=== PATIENT | female | born 1965 | race Caucasian/White ===

== ENCOUNTER → 2019-10-16 | Outpatient (CLI) | payer MEDICARE ==
[2015-04-10 08:17] VITALS: BP 114/72
[~2019-10-16] MED LIST: ASPI81TA50 PO; CYAN500T17 PO/SL; CYCL10TA2 PO; ESCITALOPRAM OX20 MG PO; FAMO40OR4 PO; FURO20TA3 PO; HYDR-2769 PO; IBUP200T44 PO; LEVO100V5 PO; LEXAPRO20 MG PO; LIPITOR80 MG PO; LISI-334 PO; OXYC20TA34 PO; PANT40TA77 PO; POLY119P19 PO; VENTOLIN HFA18 GM INH
[2019-10-16 11:02] LABS: BASO # 0.1 x10^3/uL (0.0-0.2); BASO % 1 % (0-3); EOS # 0.2 x10^3/uL (0.0-0.7); EOS % 3 % (0-3); HEMATOCRIT 42.6 % (36.0-47.0); HEMOGLOBIN 13.9 g/dL (12.0-15.5); LYMPH # 2.5 x10^3/uL (1.0-4.8); LYMPH % 35 % (24-48); MEAN CORPUSCULAR HEMOGLOBIN 27 pg (25-35); MEAN CORPUSCULAR HGB CONC 33 g/dL (31-37); MEAN CORPUSCULAR VOLUME 84 fL (79-100); MONO # 0.5 x10^3/uL (0.0-1.1); MONO % 7 % (0-9); NEUT # 3.9 x10^3/uL (1.8-7.7); NEUT % 55 % (31-73); PLATELET COUNT 186 x10^3/uL (140-400); RED BLOOD COUNT 5.07 x10^6/uL (3.50-5.40); RED CELL DISTRIBUTION WIDTH 14.7 % (11.5-14.5); WHITE BLOOD COUNT 7.1 x10^3/uL (4.0-11.0)
[2019-10-16 11:15] LABS: ALBUMIN 3.6 g/dL (3.4-5.0); ALBUMIN/GLOBULIN RATIO 1.1 (1.0-1.7); CALCIUM 8.6 mg/dL (8.5-10.1); CREATININE 0.8 mg/dL (0.6-1.0); GFR 74.7; POTASSIUM 4.5 mmol/L (3.5-5.1); TOTAL BILIRUBIN 0.3 mg/dL (0.2-1.0)
== END | disposition home or self-care (01) ==
LOC: SURGPAT 09:27
PROVIDERS: ATTEND Neurological Surgery
DX: Z01.818 Encounter for other preprocedural examination (principal); M51.16 Intervertebral disc disorders with radiculopathy, lumbar region; Z88.8 Allergy status to other drugs, medicaments and biological substances
CPT/HCPCS: 36415; 80053; 85025; 87641

== ENCOUNTER 2019-10-26 07:06 | Day surgery (SDC) | payer MEDICARE ==
--- NOTE | 2019-10-25 15:01 | HP ---
ADMIT DATE: 10/26/2019. HISTORY OF PRESENT ILLNESS: The patient is a pleasant 54-year-old who is having difficulty with low back pain, primarily pain, which radiates into her left hip and left inguinal region. She also notices diffuse pain, which radiates into her right leg. These problems started spontaneously. She has had pain for many years, but has been worse over the last 6 months. She rates her pain as 6/10. Standing at the sink and doing laundry or making beds increases her pain. Sitting helps her. She has been taking Acworth 10. She has had chiropractic treatment as well as physical therapy, which were not helpful. She did have epidural steroid injections. In 12/2018, she underwent RFA. This had helped her significantly. PAST MEDICAL HISTORY: Arthritis, asthma, blood clots, cold sores or fever blisters, headaches or migraines, head or neck injury, hypertension, kidney stones, hypothyroidism and ulcers, chest pain, heart trouble or disease, swelling of limbs, thyroid disease, tonsillitis. PAST SURGICAL HISTORY: Cholecystectomy in 2000, hysterectomy in 2001, gastric sleeve in 2011, appendectomy 2013, renal stent 2005 and ACDF C5-C6 03/2015, cardiac stents 2016, left knee and ankle surgery in 2006. FAMILY HISTORY: Coronary artery disease, hypertension, migraine headaches, and spine problems, [place] at an early age, diabetes. SOCIAL HISTORY: She is a former smoker. Disabled. . Exercises weekly with walking. Denies alcohol consumption. Drinks coffee and soda daily. ALLERGIES: CIPRO AND SULFA. CURRENT MEDICATIONS: Pantoprazole, famotidine, escitalopram oxalate, Ventolin HFA, vitamin B12, aspirin, atorvastatin, calcium, furosemide, cyclobenzaprine, hydrochlorothiazide, polyethylene glycol, Flexeril, Acworth. REVIEW OF SYSTEMS: A 12-point review of systems was obtained and is noncontributory except for that mentioned above. PHYSICAL EXAMINATION: NEUROSURGERY EXAMINATION: GENERAL APPEARANCE: Alert, pleasant, no acute distress. HEAD: Normocephalic, atraumatic. SKIN: Warm and dry. MUSCULOSKELETAL: Lumbar paraspinal muscle bulk is normal, restricted range of motion of the lumbar spine, [id number]-[id number] tenderness of the lower lumbar spine with palpation, normal range of motion of the lower extremities bilaterally. EXTREMITIES: No clubbing, cyanosis or edema. NEUROLOGIC: Alert and oriented x3, normal recent and remote memory. Strength 5/5 in bilateral lower extremities, sensory was intact to light touch in lower extremities bilaterally, Reflexes are present and symmetric in bilateral lower extremities. Straight leg raising on the left is associated with left inguinal region pain. Straight leg raising on the right was negative. Normal gait. IMAGING: I reviewed a lumbar MRI scan. There is a large left left-sided disc herniation at L1-L2. The conus appears to be slightly higher at T12-L1. I did not see significant central canal or foraminal narrowing in mid to lower lumbar spine. ASSESSMENT/ PLAN: I do think that the problem at L1-L2 and left is responsible for her left inguinal region pain. I cannot explain the pain she is experiencing diffusely in her right leg. At this point, I think it would be worthwhile for her to undergo lumbar microsurgery at L1-L2 on the left, to see if this might help her. I did discuss the surgery and the risks. I explained that the disc at this level is slightly higher risk because of the proximity to the conus. I also explained to her that the disc had been present there for an extended period of time. It may be calcified. This can lead to limit and the ability to remove it. I did feel that I would be able to decompress the nerve root on the left. I do, however, feel that I would help her left-sided symptoms. We will make the arrangements. MONO ANAYA MD DR: MERCEDES/eduard JOB#: [id number] / [id number] ANGELIA
[~2019-10-26] VITALS: Ht 160 cm; Wt 97.5 kg
[~2019-10-26 07:06] MED LIST changes: +BACITRACIN 50,000 UNIT in IV NORMAL SALINE 1000ML BAG 1,000 ML IRR ONE; +HYDROmorphone 2 MG/ML VIAL IV PRN; +IV RINGERS,LACTATED 1000ML 1,000 ML IV SCH; +LIDOCAINE 1% PF 2 ML VIAL. ID PRN; +MORPHINE SULFATE 2 MG/ML VIAL. IV PRN; +PROCHLORPERAZINE 10 MG/2 ML VIAL. IV PRN; +fentaNYL PF VIAL 100 MCG/2 ML VIAL IV PRN
[2019-10-26] MEDS ORDERED: KETOROLAC 60 MG/2 ML VIAL. ONE (07:15)
[2019-10-26] MEDS ORDERED: GELATIN SPONGE SIZE 100. ONE (07:15)
[2019-10-26] MEDS ORDERED: BUPIVACAINE-EPI 0.5%-1:200000 MPF 30 ML VIAL. ONE (07:15)
[2019-10-26] MEDS ORDERED: THROMBIN TOPICAL 20,000 UNIT SPRAY.SYRN KIT TP ONE (07:16)
[2019-10-26] MEDS ORDERED: PROPOFOL 50 ML IV ONE ×2 (07:51→10:30)
[2019-10-26] MEDS ORDERED: LIDOCAINE 2% PF 5 ML VIAL. ONE (07:51)
[2019-10-26] MEDS ORDERED: PROPOFOL 20 ML IV ONE (07:51)
[2019-10-26] MEDS ORDERED: fentaNYL PF VIAL 100 MCG/2 ML VIAL ONE (07:51)
[2019-10-26] MEDS ORDERED: REMIFENTANIL 2 MG VIAL. IV ONE (07:52)
[2019-10-26] MEDS ORDERED: ROCURONIUM 50 MG/5 ML VIAL. ONE (07:52)
[2019-10-26] MEDS ORDERED: SUCCINYLCHOLINE 200 MG/10 ML VIAL. ONE (07:52)
[2019-10-26] MEDS ORDERED: 0.9 % SODIUM CHLORIDE 20 ML VIAL. IJ ONE (07:53)
[2019-10-26] MEDS ORDERED: DEXAMETHASONE SOD PHOS 20 MG/5 ML VIAL. ONE (09:10)
[2019-10-26] MEDS ORDERED: DESFLURANE 61 TO 120 MINUTES IH ONE (09:10)
[2019-10-26] MEDS ORDERED: ONDANSETRON PF 4 MG/2 ML VIAL. ONE (09:29)
[2019-10-26] MEDS ORDERED: PHENYLEPHRINE in 0.9% NACL PF 1 MG/10 ML SYRINGE. IV ONE (10:00)
[2019-10-26] MEDS ORDERED: PHENYLEPHRINE 10 MG/ML VIAL. ONE (10:00)
[2019-10-26] MEDS ORDERED: GLYCOPYRROLATE 1 MG/5 ML VIAL. ONE (10:33)
--- NOTE | 2019-10-26 12:14 | DISCH ---
DISCHARGE INSTRUCTIONS Condition on Discharge Condition on Discharge: Stable Activity After Discharge Activity Instructions for Disc: Avoid exertion Other activity instructions: No lifting >10 lbs, no bending, no twisting, no pushing or pulling Bathing Instructions: Shower-keep dressing dry, No Tub Bath until see Lifting Instructions after Dis: No heavy lifting, No pulling or pushing, Do not lift >10 pounds Exercise Instruction after Dis: Progress as tolerated Driving Instructions after Dis: Other, see below Weight Bearing Status after Di: No restrictions, Other, see below Diet after Discharge Diet after Discharge: Regular Diet Texture: Regular Liquid Texture: Thin Liquid Wound Incision Care Wound/Incision Care: Ice to area for comfort, May get incision wet Wound Care Equipment: Dressings Contacting the DRKathy after DC Call your doctor for: Concerns you may have Treatment/Equipment after DC Adaptive Equipment Issued: None MONO ANAYA MD Oct 26, 2019 12:14
[2019-10-26] MEDS: fentaNYL PF VIAL 100 MCG/2 ML VIAL IV PRN ×2 (12:15→12:26)
[2019-10-26] MEDS ORDERED: CYCLOBENZAPRINE 10 MG TABLET. PO ONE (12:15)
[2019-10-26] MEDS ORDERED: HYDROcodone/APAP 10/325 1 TAB TABLET PO PRN ×2 (12:15)
[2019-10-26 12:35] VITALS: BP 117/74
--- NOTE | 2019-10-26 18:21 | OP ---
DATE OF SURGERY: 10/26/2019 PREOPERATIVE DIAGNOSES: Herniated lumbar disc, L1-L2, left. POSTOPERATIVE DIAGNOSIS: Herniated lumbar disc, L1-L2, left. OPERATION PERFORMED: Lumbar microdecompression L1-L2, left with lumbar microdiscectomy L2-L3, left. The operation was done with EMG monitoring, SSEP monitoring, fluoroscopy, microscopic dissection. SURGEON: Dagoberto Anaya M.D. Mary Stark, assisted with the operation. She assisted with the decompression as well as the closure. OPERATIVE INDICATIONS: The patient is a pleasant 54-year-old who developed intractable back and primarily left inguinal radiating pain, which failed to improve with conservative measures. With imaging studies, she was found to have herniated lumbar L1-L2 disc on the left, which has been present for considerable period. I recommended lumbar microsurgery. I explained to her that should the disc be found to be calcified, it would limit how much disc which could be removed, but I could decompress the entire region and nerve root. She understood, she wished to go ahead. DESCRIPTION OF PROCEDURE: Following general endotracheal anesthesia, the patient was positioned prone on the Gurjit table, lumbar region was prepped and draped in standard fashion. ROMAN hose and AV impulse boots were applied for DVT prophylaxis. A microscope was draped. Fluoroscopy was draped and brought into field. Monitoring was established. Ancef 2 grams was given less than 1 hour prior to initiation of the surgery. Using fluoroscopic guidance, an incision was made directly over the L1-L2 interspace. I dissected down through skin and subcutaneous tissue, reflected the paraspinal muscles, placed a [place] microdisk retractor. I brought in the microscope and the remainder of the surgery was done with the microscope using microscopic technique. I burred down a hemilaminotomy, exposing the dura. Then I drilled on and exposed the exiting nerve root. I peeled away very thickened ligamentum flavum and exposed a bulging disc at L1-L2 on the left. This was moderately severely calcified. I did drill a part of the outer capsule and then using a 2 mm micro Kerrison trimmed much of this away. I did remove disc from within the disc space and also from beneath the root and dura and as I worked, the region became well decompressed. I trimmed posteriorly to the midline and removed epidural fat posteriorly and then I irrigated. At this point I explored carefully, the root was very free. The dura was free. As much disc as could be safely removed had been removed. I irrigated, removed the retractor, obtained hemostasis in the muscle. Hemostasis was never a problem throughout the operation. I closed the wound in layers with absorbable suture and skin was closed with 4-0 subcuticular stitch. The operation went very well. I was quite pleased with the surgery. DAGOBERTO ANAYA MD DR: MERCEDES/eduard JOB#: [id number] / [id number] ANGELIA
--- NOTE | 2019-10-29 15:07 | PATHOLOGY ---
[facility] Accession Number: [id number] . 01 Material submitted: . vertebral column - LUMBAR DISC AND DECOMPRESSION . 01 Clinical history: . Lumbar herniated disc with radiculopathy . 02 Diagnosis: Segments of fibrocartilaginous tissue and bone, lumbar disc and decompression: - Degenerative changes of fibrocartilaginous tissue. . (JPM:melvi; 10/29/2019) QMS 10/29/2019 1245 Local . 02 Comment: There is no evidence of an acute inflammatory process or malignancy. (JPM:melvi; 10/29/2019) . 02 Electronically signed: . Frandy Blanco MD, Pathologist NPI- [id number] . 01 Gross description: . The specimen is received in formalin, labeled "Bro Lai, lumbar disc and decompression". Received are multiple segments of pink-sarabia, fibrous, gritty tissue admixed with fragments of bone measuring 3.5 x 3.2 x 1.1 cm in aggregate dimensions. The specimen is submitted representatively in cassette A1, following light decalcification. (CAA; 10/26/2019) QAC/QAC 10/26/2019 1603 Local . 02 Pathologist provided ICD-10: M51.36 . 02 CPT . 307362, 279884 Specimen Comment: A courtesy copy of this report has been sent to [phone], [phone] Specimen Comment: [id number] Specimen Comment: Report sent to and Performed at: 01 [facility] [address], [place], [place] [id number] MD Bon Sunshine MD Phone: [phone] Performed at: 02 [facility] [address], [place] [id number] MD Frandy Blanco MD Phone: [phone]
== END 2019-10-26 13:20 | disposition home or self-care (01) ==
LOC: SURG 07:06
PROVIDERS: ATTEND Neurological Surgery
DX: M51.26 Other intervertebral disc displacement, lumbar region (principal); G43.909 Migraine, unspecified, not intractable, without status migrainosus; I25.2 Old myocardial infarction; I25.10 Atherosclerotic heart disease of native coronary artery without angina pectoris; K21.9 Gastro-esophageal reflux disease without esophagitis; E03.9 Hypothyroidism, unspecified; I10 Essential (primary) hypertension; E66.9 Obesity, unspecified; Z68.38 Body mass index [BMI] 38.0-38.9, adult; Z86.718 Personal history of other venous thrombosis and embolism; Z87.891 Personal history of nicotine dependence; Z90.710 Acquired absence of both cervix and uterus; Z87.442 Personal history of urinary calculi
CPT/HCPCS: 63030; 97161; A7015; J0330; J0696; J1100; J1885; J2001; J2370; J2405; J2704; J3010; J3490; J7030; J7120; 76000

== ENCOUNTER → 2021-06-26 | Outpatient (CLI) | payer MEDICARE ==
[~2021-06-26] MED LIST changes: -BACITRACIN 50,000 UNIT in IV NORMAL SALINE 1000ML BAG 1,000 ML IRR ONE; +GADOTERATE 7.5 MMOL/15ML VIAL. IVP ONE; -HYDROmorphone 2 MG/ML VIAL IV PRN; -IV RINGERS,LACTATED 1000ML 1,000 ML IV SCH; -LIDOCAINE 1% PF 2 ML VIAL. ID PRN; -LISI-334 PO; +LISI20TA18 PO; -MORPHINE SULFATE 2 MG/ML VIAL. IV PRN; -PROCHLORPERAZINE 10 MG/2 ML VIAL. IV PRN; -fentaNYL PF VIAL 100 MCG/2 ML VIAL IV PRN
--- NOTE | 2021-06-26 15:56 | KCIC ---
EXAM: Lumbar spine MRI without contrast. HISTORY: Lumbar radiculopathy. Pain. TECHNIQUE: Multiplanar, multisequence magnetic resonance imaging of the lumbar spine was performed wi thout and with contrast. COMPARISON: None. FINDINGS: There is mild lumbar scoliosis. There is minimal retrolisthesis of L2 on L3. There is degen erative endplate remodeling with disc space narrowing and osteophytosis primarily at L1-L2. There are multiple endplate Schmorl's nodes. There is no suspicious osseous lesion. There is no acute or subac nica fracture. There are multiple osseous hemangiomas. The conus terminates at L1. At T11-T12, there is left paracentral disc protrusion which slightly deforms the ventral aspect of th e conus. There is mild bilateral facet arthropathy. There is no stenosis. At T12-L1, there is no stenosis. At L1-L2, there is a large broad-based left paracentral to foraminal disc protrusion superimposed on a disc bulge and endplate osteophytosis. There is mild bilateral facet arthropathy. There are left he milaminectomy changes. There is mild left foraminal stenosis. There is moderate central canal stenosi s and effacement of the left lateral recess. At L2-L3, there is a disc bulge and endplate remodeling. There is mild bilateral facet arthropathy. T here is mild retrolisthesis. There is mild central canal stenosis. At L3-L4, there is moderate bilateral facet arthropathy. There is mild central canal stenosis. At L4-L5, there is a disc bulge. There is moderate to severe bilateral facet arthropathy. There is hy pertrophy of the ligamentum flavum. There is mild bilateral foraminal stenosis. There is mild central canal stenosis. At L5-S1, there is moderate lateral facet arthropathy. There is mild bilateral foraminal stenosis. IMPRESSION: 1. Multilevel degenerative change involving the lower thoracic and lumbar spine, described in detail above. This results in mild left foraminal and moderate central canal stenosis and effacement of the left lateral recess at L1-L2, mild central canal stenosis at L2-L3 and L3-L4, mild bilateral foramina l and central canal stenosis at L4-5 and mild bilateral foraminal stenosis at L5-S1. 2. Left hemilaminectomy changes at L1-L2. Electronically signed by: Anuja Fuller MD (06/26/2021 3:54 PM) [facility]
--- NOTE | 2021-06-26 16:45 | KCIC ---
EXAM: Lumbar spine, flexion and extension. HISTORY: Pain. COMPARISON: None. FINDINGS: 4 views of the lumbar spine are obtained. There is mild kyphosis at the thoracolumbar junct ion. There is no significant listhesis or abnormal motion between flexion and extension. There is deg enerative endplate remodeling at multiple levels. There is disc space narrowing and Schmorl's node fo rmation primarily at L1-L2. There is facet arthropathy predominantly at the lumbosacral junction. The re are cholecystectomy clips. IMPRESSION: 1. Multilevel degenerative change, predominantly at L1-L2 and the lumbosacral junction. 2. No acute osseous finding. Electronically signed by: Anuja Fuller MD (06/26/2021 4:42 PM) [facility]
== END ==
LOC: KCIC MRI 13:45
PROVIDERS: ATTEND Neurological Surgery
DX: M47.27 Other spondylosis with radiculopathy, lumbosacral region (principal); M47.25 Other spondylosis with radiculopathy, thoracolumbar region; M51.24 Other intervertebral disc displacement, thoracic region; M48.07 Spinal stenosis, lumbosacral region; M41.86 Other forms of scoliosis, lumbar region; M25.78 Osteophyte, vertebrae; M51.46 Schmorl's nodes, lumbar region; Z90.49 Acquired absence of other specified parts of digestive tract
CPT/HCPCS: 72110; 72158; A9575